=== PATIENT | male | born 1995 | race Caucasian/White ===

== ENCOUNTER 2018-04-12 07:34 | Emergency (ER) | payer MEDICAID ==
[~2018-04-12] VITALS: Ht 167.6 cm; Wt 94.0 kg
[~2018-04-12 07:34] MED LIST: ALBU18HF2 INH; AZIT250T PO; BENZ-16 PO; LORA-835 PO; NO HOME MEDS; ONDA8TAB9 PO; TRAM50TA2 PO
[2018-04-12 07:42] VITALS: BP 117/76
[2018-04-12] MEDS ORDERED: PENI250T2 PO (07:56)
[2018-04-12] MEDS ORDERED: dexamethasone sod phosphate 10mg/ml inj IM STA (07:56)
[2018-04-12] MEDS ORDERED: LIDO20SO16 PO (07:56)
== END 2018-04-12 08:00 | disposition home or self-care (01) ==
LOC: ER 07:34
DX: J02.0 Streptococcal pharyngitis (principal); G89.29 Other chronic pain; Z98.890 Other specified postprocedural states; Z79.899 Other long term (current) drug therapy
CPT/HCPCS: 96372; 99283

== ENCOUNTER 2018-12-18 21:42 | Emergency (ER) | payer MEDICAID ==
[~2018-12-18] VITALS: Ht 167.6 cm; Wt 100.0 kg
[~2018-12-18 21:42] MED LIST changes: -BENZ-16 PO; +LIDO20SO16 PO
[2018-12-18 21:51] VITALS: BP 135/91
[2018-12-18] MEDS ORDERED: LIDOcaine Viscous 15ml cup MM ONE (22:55)
== END 2018-12-18 23:19 | disposition home or self-care (01) ==
LOC: ER 21:48
DX: K12.0 Recurrent oral aphthae (principal); G89.29 Other chronic pain; M54.9 Dorsalgia, unspecified
CPT/HCPCS: 99282

== ENCOUNTER 2019-04-06 13:37 | Emergency (ER) | payer MEDICAID ==
[~2019-04-06] VITALS: Ht 167.6 cm; Wt 100.0 kg
[~2019-04-06 13:37] MED LIST changes: +ONDA4TAB12 PO
[2019-04-06 13:49] VITALS: BP 133/73
[2019-04-06] MEDS ORDERED: cetirizine 10mg tablet PO STA (16:05)
[2019-04-06] MEDS ORDERED: ALBU18HF2 INH (16:06)
== END 2019-04-06 16:30 | disposition home or self-care (01) ==
LOC: ER 13:38
DX: R06.02 Shortness of breath (principal); G89.29 Other chronic pain; Z98.890 Other specified postprocedural states; Z79.899 Other long term (current) drug therapy
CPT/HCPCS: 93005; 99283

== ENCOUNTER 2020-09-12 06:19 | Emergency (ER) | payer MEDICAID ==
[~2020-09-12] VITALS: Ht 167.6 cm; Wt 115.0 kg
[2020-09-12 06:22] VITALS: BP 122/79
[2020-09-12] MEDS ORDERED: MYCOL30CR TP (07:08)
== END 2020-09-12 07:26 | disposition home or self-care (01) ==
LOC: ER 06:20
DX: B35.6 Tinea cruris (principal); G89.29 Other chronic pain; F32.9 Major depressive disorder, single episode, unspecified; F12.90 Cannabis use, unspecified, uncomplicated; Z98.890 Other specified postprocedural states; Z72.89 Other problems related to lifestyle; Z79.2 Long term (current) use of antibiotics; Z79.899 Other long term (current) drug therapy
CPT/HCPCS: 99283

== ENCOUNTER 2021-03-30 12:35 | Emergency (ER) | payer MEDICAID ==
[~2021-03-30] VITALS: Ht 167.6 cm; Wt 96.8 kg
[~2021-03-30 12:35] MED LIST changes: +MYCOL30CR TP
[2021-03-30 12:55] VITALS: BP 124/84
== END 2021-03-30 14:48 | disposition home or self-care (01) ==
LOC: ER 12:36
DX: M54.5 Low back pain (principal); G89.29 Other chronic pain; F12.90 Cannabis use, unspecified, uncomplicated; Z72.89 Other problems related to lifestyle; Z98.890 Other specified postprocedural states; Z79.899 Other long term (current) drug therapy; Z79.2 Long term (current) use of antibiotics
CPT/HCPCS: 74176; 99284

== ENCOUNTER 2021-04-23 10:16 | Emergency (ER) | payer MEDICAID, OTHER ==
[~2021-04-23] VITALS: Ht 167.6 cm; Wt 100.0 kg
[2021-04-23 10:39] VITALS: BP 126/82
--- NOTE | 2021-04-23 14:45 | NUR ---
PT SEEN AND DC'D BY PROVIDER
== END 2021-04-23 14:47 | disposition home or self-care (01) ==
LOC: ER 10:16
DX: S16.1XXA Strain of muscle, fascia and tendon at neck level, initial encounter (principal); M54.2 Cervicalgia; G89.29 Other chronic pain; F32.9 Major depressive disorder, single episode, unspecified; F12.90 Cannabis use, unspecified, uncomplicated; Z72.89 Other problems related to lifestyle; Z98.890 Other specified postprocedural states; Z79.2 Long term (current) use of antibiotics; Z79.899 Other long term (current) drug therapy; V89.1XXA Person injured in unspecified nonmotor-vehicle accident, nontraffic, initial encounter; Y93.89 Activity, other specified; Y92.89 Other specified places as the place of occurrence of the external cause; Y99.8 Other external cause status
CPT/HCPCS: 99282

== ENCOUNTER 2023-03-03 08:40 | Emergency (ER) | payer MEDICAID, OTHER ==
[~2023-03-03] VITALS: Ht 167.6 cm; Wt 110.0 kg
[~2023-03-03 08:40] MED LIST changes: -MYCOL30CR TP; +NYST30CR35 TP
[2023-03-03 08:44] VITALS: BP 169/87
[2023-03-03] MEDS ORDERED: ipratropium/albuterol 3ml nebule NEB ONE (09:10)
--- NOTE | 2023-03-03 09:15 | NUR ---
pt refuses blood draw at this time, will make provider aware
[2023-03-03] MEDS ORDERED: ALBU6.7H14 INH ×3 (10:37→11:18)
[2023-03-03] MEDS ORDERED: FLUT1AER8 INH ×3 (10:37→11:18)
[2023-03-03] MEDS ORDERED: DOXY100T67 PO ×2 (10:37)
[2023-03-03] MEDS ORDERED: DOXY100T2 PO (11:18)
== END 2023-03-03 11:19 | disposition home or self-care (01) ==
LOC: ER 08:40
DX: J20.9 Acute bronchitis, unspecified (principal); F12.90 Cannabis use, unspecified, uncomplicated
CPT/HCPCS: 71046; 94640; 94760; 99283

== ENCOUNTER 2025-01-18 23:34 | Emergency (ER) | payer MEDICAID ==
[~2025-01-18] VITALS: Ht 167.6 cm; Wt 114.8 kg
[~2025-01-18 23:34] MED LIST changes: +ALBU6.7H14 INH; +DOXY100T2 PO; +FLUT1AER8 INH; +ONDA-243 PO; -ONDA4TAB12 PO
[2025-01-19 03:45] VITALS: BP 144/80; PULSE 88; RESP 17; TEMP 98.1; O2SAT 98
== END 2025-01-19 03:46 | disposition home or self-care (01) ==
LOC: ER 23:35
DX: M75.31 Calcific tendinitis of right shoulder (principal); F32.A Depression, unspecified; F12.90 Cannabis use, unspecified, uncomplicated; Z98.890 Other specified postprocedural states
CPT/HCPCS: 73030; 73060; 99284